=== PATIENT | male | born 1995 | race Caucasian/White ===

== ENCOUNTER → 2016-06-19 | Outpatient (CLI) | payer BC, OTHER, MEDICAID ==
[2016-06-19 18:19] LABS: MEAN CORPUSCULAR HEMOGLOBIN 29.5 pg (27.0-33.0); MEAN CORPUSCULAR HGB CONC 34.5 g/dl (32.0-36.5); MEAN CORPUSCULAR VOLUME 85.6 fl (80.0-96.0); RED CELL DISTRIBUTION WIDTH 12.3 % (11.5-14.5); WHITE BLOOD COUNT 6.8 K/mm3 (4.0-10.0)
[2016-06-19 19:14] LABS: ALBUMIN 4.4 GM/DL (3.2-5.2); ALBUMIN/GLOBULIN RATIO 1.26 (1.00-1.93); ALKALINE PHOSPHATASE 110 U/L (45-117); ALT/SGPT 21 U/L (12-78); ANION GAP 9 MEQ/L (8-16); AST/SGOT 17 U/L (15-37); BILIRUBIN,TOTAL 1.4 MG/DL (0.2-1.0); BLOOD UREA NITROGEN 11 MG/DL (7-18); CALCIUM LEVEL 8.7 MG/DL (8.5-10.1); CARBON DIOXIDE LEVEL 23 MEQ/L (21-32); CHLORIDE LEVEL 109 MEQ/L (98-107); CREATININE FOR GFR 0.84 MG/DL (0.70-1.30); FREE T4 1.51 NG/DL (0.76-1.46); GLOMERULAR FILTRATION RATE > 60.0 (>60); GLUCOSE, FASTING 88 MG/DL (70-105); POTASSIUM SERUM 4.4 MEQ/L (3.5-5.1); SODIUM LEVEL 141 MEQ/L (136-145); TOTAL PROTEIN 7.9 GM/DL (6.4-8.2)
[2016-06-19 19:15] LABS: LITHIUM LEVEL 1.18 MEQ/L (0.60-1.20)
== END ==
LOC: M WUC 08:35
PROVIDERS: ATTEND Neuromusculoskeletal Medicine & OMM
DX: F43.22 Adjustment disorder with anxiety (principal); F42.2 Mixed obsessional thoughts and acts

== ENCOUNTER → 2016-12-03 | Outpatient (CLI) | payer BC, OTHER, MEDICAID ==
[2016-12-03 14:37] LABS: BLOOD UREA NITROGEN 12 MG/DL (7-18); CHOLESTEROL LEVEL 96 MG/DL (<200); CREATININE FOR GFR 0.82 MG/DL (0.70-1.30); GLOMERULAR FILTRATION RATE > 60.0 (>60); GLUCOSE, FASTING 85 MG/DL (70-105); TRIGLYCERIDES LEVEL 77 MG/DL (<150)
[2016-12-03 15:03] LABS: LITHIUM LEVEL 1.14 MEQ/L (0.60-1.20)
== END ==
LOC: M WUC 08:54
PROVIDERS: ATTEND Psychiatry & Neurology Psychiatry
DX: Z51.81 Encounter for therapeutic drug level monitoring (principal); Z79.899 Other long term (current) drug therapy

== ENCOUNTER → 2017-06-14 | Outpatient (CLI) | payer OTHER, BC, MEDICAID ==
[2017-06-14 11:22] LABS: HEMATOCRIT 40.7 % (42.0-52.0); HEMOGLOBIN 13.3 g/dl (14.0-18.0); MEAN CORPUSCULAR HGB CONC 32.7 g/dl (32.0-36.5); MEAN CORPUSCULAR VOLUME 88.7 fl (80.0-96.0); PLATELET COUNT, AUTOMATED 246 10^3/uL (150-450); RED BLOOD COUNT 4.59 10^6/uL (4.30-6.10); RED CELL DISTRIBUTION WIDTH 12.5 % (11.5-14.5)
[2017-06-14 14:35] LABS: ALBUMIN 4.4 GM/DL (3.2-5.2); ALBUMIN/GLOBULIN RATIO 1.26 (1.00-1.93); ALKALINE PHOSPHATASE 103 U/L (45-117); ALT/SGPT 17 U/L (12-78); ANION GAP 5 MEQ/L (8-16); AST/SGOT 10 U/L (7-37); BILIRUBIN,TOTAL 1.3 MG/DL (0.2-1.0); BLOOD UREA NITROGEN 12 MG/DL (7-18); CALCIUM LEVEL 9.2 MG/DL (8.5-10.1); CARBON DIOXIDE LEVEL 27 MEQ/L (21-32); CHLORIDE LEVEL 109 MEQ/L (98-107); CREATININE FOR GFR 0.79 MG/DL (0.70-1.30); FREE T4 1.29 NG/DL (0.76-1.46); GLOMERULAR FILTRATION RATE > 60.0 (>60); GLUCOSE, FASTING 93 MG/DL (70-100); POTASSIUM SERUM 4.2 MEQ/L (3.5-5.1); SODIUM LEVEL 141 MEQ/L (136-145); TOTAL PROTEIN 7.9 GM/DL (6.4-8.2)
[2017-06-14 14:37] LABS: LITHIUM LEVEL 1.16 MEQ/L (0.60-1.20)
== END ==
LOC: M WUC 08:31
DX: F43.22 Adjustment disorder with anxiety (principal)

== ENCOUNTER → 2017-11-05 | Outpatient (CLI) | payer OTHER, BC, MEDICAID ==
[2017-11-05 17:08] LABS: HEMATOCRIT 40.4 % (42.0-52.0); HEMOGLOBIN 13.2 g/dl (13.5-17.5); MEAN CORPUSCULAR HEMOGLOBIN 29.1 pg (27.0-33.0); MEAN CORPUSCULAR HGB CONC 32.7 g/dl (32.0-36.5); MEAN CORPUSCULAR VOLUME 89.2 fl (80.0-96.0); PLATELET COUNT, AUTOMATED 233 10^3/uL (150-450); RED BLOOD COUNT 4.53 10^6/uL (4.30-6.10); RED CELL DISTRIBUTION WIDTH 12.5 % (11.5-14.5); WHITE BLOOD COUNT 10.6 10^3/uL (4.0-10.0)
[2017-11-05 17:24] LABS: ESTIMATED AVERAGE GLUCOSE 88 MG/DL (60-110); HEMOGLOBIN A1c 4.7 %
[2017-11-05 17:25] LABS: BLOOD UREA NITROGEN 18 MG/DL (7-18); CHOLESTEROL LEVEL 113 MG/DL (<200); CREATININE FOR GFR 0.93 MG/DL (0.70-1.30); GLOMERULAR FILTRATION RATE > 60.0 (>60); GLUCOSE, FASTING 77 MG/DL (70-100); HDL CHOLESTEROL 50 MG/DL (>40); NON-HDL-C 63 MG/DL; TRIGLYCERIDES LEVEL 60 MG/DL (<150)
[2017-11-05 17:30] LABS: LITHIUM LEVEL 1.11 MEQ/L (0.60-1.20)
== END ==
LOC: M WUC 08:09
DX: Z51.81 Encounter for therapeutic drug level monitoring (principal); Z79.899 Other long term (current) drug therapy
CPT/HCPCS: 82565

== ENCOUNTER → 2018-06-08 | Outpatient (REF) | payer OTHER, MEDICAID ==
[2018-06-08 16:33] LABS: BASO % 0.4 % (0.0-1.0); EOS % 0.1 % (0.0-3.0); HEMATOCRIT 43.3 % (42.0-52.0); LYMPH # 1.7 10^3/uL (1.5-6.5); LYMPH % 17.1 % (24.0-44.0); MEAN CORPUSCULAR HEMOGLOBIN 28.6 pg (27.0-33.0); MEAN CORPUSCULAR HGB CONC 32.3 g/dl (32.0-36.5); MEAN CORPUSCULAR VOLUME 88.5 fl (80.0-96.0); MONO # 0.7 10^3/uL (0.0-0.8); MONO % 6.7 % (0.0-5.0); NEUTROPHILS # 7.3 10^3/uL (1.8-7.7); NEUTROPHILS % 75.3 % (36.0-66.0); PLATELET COUNT, AUTOMATED 263 10^3/uL (150-450); RED BLOOD COUNT 4.89 10^6/uL (4.30-6.10); WHITE BLOOD COUNT 9.7 10^3/uL (4.0-10.0)
[2018-06-08 16:48] LABS: ALBUMIN 4.2 GM/DL (3.2-5.2); ALT/SGPT 19 U/L (12-78); BILIRUBIN,TOTAL 1.3 MG/DL (0.2-1.0); BLOOD UREA NITROGEN 14 MG/DL (7-18); CALCIUM LEVEL 9.2 MG/DL (8.5-10.1); CARBON DIOXIDE LEVEL 29 MEQ/L (21-32); CHLORIDE LEVEL 105 MEQ/L (98-107); CREATININE FOR GFR 0.81 MG/DL (0.70-1.30); FREE THYROXINE INDEX 3.5 % (1.4-3.8); GLOMERULAR FILTRATION RATE > 60.0 (>60); GLUCOSE, FASTING 58 MG/DL (70-100); LITHIUM LEVEL 0.84 MEQ/L (0.60-1.20); POTASSIUM SERUM 3.9 MEQ/L (3.5-5.1); SODIUM LEVEL 140 MEQ/L (136-145); T UPTAKE 34 % (33-40); THYROXINE (T4) 10.3 UG/DL (4.5-12.0)
== END ==
LOC: M SFHCPLAZ 13:41
DX: Z00.00 Encounter for general adult medical examination without abnormal findings (principal)

== ENCOUNTER → 2018-06-13 | Outpatient (CLI) | payer OTHER, MEDICAID | LOC: M WUC 08:36 | PROVIDERS: ATTEND Internal Medicine | DX: Z00.00 Encounter for general adult medical examination without abnormal findings (principal) ==

== ENCOUNTER → 2019-01-17 | Outpatient (CLI) | payer OTHER, MEDICAID ==
[2019-01-17 09:30] LABS: HEMATOCRIT 41.3 % (42.0-52.0); HEMOGLOBIN 13.4 g/dl (13.5-17.5); MEAN CORPUSCULAR HEMOGLOBIN 28.8 pg (27.0-33.0); MEAN CORPUSCULAR HGB CONC 32.4 g/dl (32.0-36.5); MEAN CORPUSCULAR VOLUME 88.8 fl (80.0-96.0); PLATELET COUNT, AUTOMATED 254 10^3/uL (150-450); RED BLOOD COUNT 4.65 10^6/uL (4.30-6.10); WHITE BLOOD COUNT 7.7 10^3/uL (4.0-10.0)
[2019-01-17 09:47] LABS: BLOOD UREA NITROGEN 16 MG/DL (7-18); CHOLESTEROL LEVEL 127 MG/DL (<200); CHOLESTEROL RISK RATIO 2.645 (<5); CREATININE FOR GFR 0.89 MG/DL (0.70-1.30); GLOMERULAR FILTRATION RATE > 60.0 (>60); GLUCOSE, FASTING 91 MG/DL (70-100); HDL CHOLESTEROL 48 MG/DL (>40); LDL CHOLESTEROL 61 MG/DL (<100); LITHIUM LEVEL 1.02 MEQ/L (0.60-1.20); NON-HDL-C 79 MG/DL; TRIGLYCERIDES LEVEL 91 MG/DL (<150)
[2019-01-17 10:20] LABS: HEMOGLOBIN A1c 4.1 %
== END ==
LOC: M WUC 08:03
PROVIDERS: ATTEND Psychiatry & Neurology Psychiatry
DX: Z79.899 Other long term (current) drug therapy (principal)

== ENCOUNTER → 2020-05-28 | Outpatient (REF) | payer MEDICAID, OTHER ==
[2020-05-28 11:21] LABS: HEMATOCRIT 43.8 % (42.0-52.0); MEAN CORPUSCULAR HEMOGLOBIN 28.4 pg (27.0-33.0); MEAN CORPUSCULAR VOLUME 88.8 fl (80.0-96.0); PLATELET COUNT, AUTOMATED 220 10^3/uL (150-450); RED BLOOD COUNT 4.93 10^6/uL (4.30-6.10); WHITE BLOOD COUNT 9.6 10^3/uL (4.0-10.0)
[2020-05-28 11:52] LABS: BLOOD UREA NITROGEN 15 MG/DL (7-18); CHOLESTEROL LEVEL 134 MG/DL (<200); CREATININE FOR GFR 0.86 MG/DL (0.70-1.30); GLOMERULAR FILTRATION RATE > 60.0 (>60); GLUCOSE, FASTING 78 MG/DL (70-100); HDL CHOLESTEROL 58 MG/DL (>40); LDL CHOLESTEROL 66 MG/DL (<100); LITHIUM LEVEL 0.81 MEQ/L (0.60-1.20); NON-HDL-C 76 MG/DL; TRIGLYCERIDES LEVEL 48 MG/DL (<150)
[2020-05-28 12:37] LABS: HEMOGLOBIN A1c 4.3 %
== END ==
LOC: M WUC 10:34 → M LAB REF 10:34
PROVIDERS: ATTEND Psychiatry & Neurology Psychiatry
DX: Z79.899 Other long term (current) drug therapy (principal)

== ENCOUNTER → 2021-01-05 | Outpatient (CLI) | payer MEDICAID, OTHER ==
[2021-01-05 10:26] LABS: HEMOGLOBIN A1c 4.5 %
[2021-01-05 10:42] LABS: ALBUMIN 4.2 GM/DL (3.2-5.2); ALT/SGPT 23 U/L (12-78); BILIRUBIN,TOTAL 1.1 MG/DL (0.2-1.0); BLOOD UREA NITROGEN 15 MG/DL (7-18); CALCIUM LEVEL 9.2 MG/DL (8.5-10.1); CARBON DIOXIDE LEVEL 24 MEQ/L (21-32); CHLORIDE LEVEL 110 MEQ/L (98-107); CHOLESTEROL LEVEL 120 MG/DL (<200); CHOLESTEROL RISK RATIO 2.105 (<5); CREATININE FOR GFR 0.77 MG/DL (0.70-1.30); GLOMERULAR FILTRATION RATE > 60.0 (>60); GLUCOSE, FASTING 92 MG/DL (70-100); HDL CHOLESTEROL 57 MG/DL (>40); LDL CHOLESTEROL 54 MG/DL (<100); LITHIUM LEVEL 0.66 MEQ/L (0.60-1.20); NON-HDL-C 63 MG/DL; SODIUM LEVEL 141 MEQ/L (136-145); TOTAL PROTEIN 7.7 GM/DL (6.4-8.2); TRIGLYCERIDES LEVEL 44 MG/DL (<150)
== END ==
LOC: M WUC 08:22
PROVIDERS: ATTEND Student in an Organized Health Care Education/Training Program
DX: Z09 Encounter for follow-up examination after completed treatment for conditions other than malignant neoplasm (principal); E80.6 Other disorders of bilirubin metabolism; F43.22 Adjustment disorder with anxiety

== ENCOUNTER → 2021-04-28 | Outpatient (CLI) | payer MEDICAID ==
[2021-04-28 13:28] LABS: HEMATOCRIT 43.4 % (42.0-52.0); HEMOGLOBIN 14.3 g/dl (13.5-17.5); MEAN CORPUSCULAR HEMOGLOBIN 28.5 pg (27.0-33.0); MEAN CORPUSCULAR HGB CONC 32.9 g/dl (32.0-36.5); MEAN CORPUSCULAR VOLUME 86.5 fl (80.0-96.0); PLATELET COUNT, AUTOMATED 234 10^3/uL (150-450); RED BLOOD COUNT 5.02 10^6/uL (4.30-6.10); WHITE BLOOD COUNT 9.1 10^3/uL (4.0-10.0)
[2021-04-28 15:05] LABS: BLOOD UREA NITROGEN 21 MG/DL (7-18); CHOLESTEROL LEVEL 105 MG/DL (<200); CHOLESTEROL RISK RATIO 2.142 (<5); CREATININE FOR GFR 0.91 MG/DL (0.70-1.30); GLOMERULAR FILTRATION RATE > 60.0 (>60); GLUCOSE, FASTING 93 MG/DL (70-100); HDL CHOLESTEROL 49 MG/DL (>40); LDL CHOLESTEROL 46 MG/DL (<100); LITHIUM LEVEL 0.84 MEQ/L (0.60-1.20); NON-HDL-C 56 MG/DL; TRIGLYCERIDES LEVEL 48 MG/DL (<150)
[2021-04-28 16:07] LABS: HEMOGLOBIN A1c 4.2 %
== END ==
LOC: M WUC 08:19
PROVIDERS: ATTEND Psychiatry & Neurology Psychiatry
DX: Z79.899 Other long term (current) drug therapy (principal)

== ENCOUNTER 2021-05-27 11:04 | Day surgery (SDC) | payer MEDICAID ==
[~2021-05-27] VITALS: Ht 162.6 cm; Wt 58.7 kg
[2021-05-27 12:16] LABS: BASO % 0.3 % (0.0-1.0); HEMATOCRIT 34.6 % (42.0-52.0); HEMOGLOBIN 11.2 g/dl (13.5-17.5); LYMPH # 1.4 10^3/uL (1.5-5.0); LYMPH % 21.3 % (24.0-44.0); MEAN CORPUSCULAR HEMOGLOBIN 27.7 pg (27.0-33.0); MEAN CORPUSCULAR HGB CONC 32.4 g/dl (32.0-36.5); MEAN CORPUSCULAR VOLUME 85.6 fl (80.0-96.0); MONO # 0.8 10^3/uL (0.0-0.8); MONO % 12.9 % (2.0-8.0); NEUTROPHILS # 4.2 10^3/uL (1.5-8.5); PLATELET COUNT, AUTOMATED 211 10^3/uL (150-450); RED BLOOD COUNT 4.04 10^6/uL (4.30-6.10); WHITE BLOOD COUNT 6.5 10^3/uL (4.0-10.0)
[2021-05-27] MEDS ORDERED: ONDANSETRON 4MG/2ML VIAL IV ONE (12:20)
[2021-05-27] MEDS ORDERED: MORPHINE 2 MG/ML 1ML VIAL (J2270) IV ONE (12:20)
[2021-05-27] MEDS ORDERED: NS 1,000 ML IV ONE (12:20)
[2021-05-27] MEDS ORDERED: LITH300T PO (12:23)
[2021-05-27] MEDS ORDERED: BUSP15TA47 PO (12:23)
[2021-05-27] MEDS ORDERED: GUAN1TAB17 PO (12:23)
[2021-05-27] MEDS ORDERED: LITH300C PO (12:23)
[2021-05-27] MEDS ORDERED: ZYPR20TA PO (12:23)
[2021-05-27 12:37] LABS: BLOOD UREA NITROGEN 11 MG/DL (7-18); CARBON DIOXIDE LEVEL 23 MEQ/L (21-32); CHLORIDE LEVEL 109 MEQ/L (98-107); CREATININE FOR GFR 0.84 MG/DL (0.70-1.30); GLOMERULAR FILTRATION RATE > 60.0 (>60); GLUCOSE, FASTING 93 MG/DL (70-100); SODIUM LEVEL 139 MEQ/L (136-145)
[2021-05-27] MEDS ORDERED: HOME MED LIST COMPLETE! XX SCH (12:45)
[2021-05-27] MEDS ORDERED: BUPIVACAINE HCL 0.25% 30ML VIAL As Ordered ONE (13:10)
[2021-05-27] MEDS ORDERED: BACITRACIN OINTMENT 30GM TUBE As Ordered ONE (13:11)
[2021-05-27] MEDS ORDERED: GENTAMICIN SULF 80MG/2ML VIAL As Ordered ONE (13:11)
[2021-05-27] MEDS ORDERED: SUCCINYLCHOLINE 100 MG/5 ML SYRINGE (J0330) As Ordered ONE (13:47)
[2021-05-27] MEDS ORDERED: dexameTHASONE 4 MG/ML 1ML VIAL (J1100 PER 1MG) As Ordered ONE (13:47)
[2021-05-27] MEDS ORDERED: propofoL 200 MG/20 ML VIAL As Ordered ONE (13:47)
[2021-05-27] MEDS ORDERED: MIDAZOLAM INJ 2MG/2ML VIAL (J2250 PER 1MG) As Ordered ONE (13:47)
[2021-05-27] MEDS ORDERED: METOCLOPRAMIDE INJ 10MG/2ML VIAL (J2765 PER 1) As Ordered ONE (13:47)
[2021-05-27] MEDS ORDERED: ROCURONIUM BROMIDE 50 MG/5 ML VIAL As Ordered ONE (13:47)
[2021-05-27] MEDS ORDERED: KETOROLAC 60MG 2ML VIAL As Ordered ONE (13:47)
[2021-05-27] MEDS ORDERED: LIDOCAINE 2% 100MG/5ML SDV (FOR ANES.) As Ordered ONE (13:47)
[2021-05-27] MEDS ORDERED: ONDANSETRON 4MG/2ML VIAL As Ordered ONE (13:47)
[2021-05-27] MEDS ORDERED: fentaNYL 100 MCG/2 ML INJECTION As Ordered ONE ×2 (13:47→14:00)
[2021-05-27] MEDS ORDERED: SUGAMMADEX SODIUM 500 MG/5 ML VIAL (BRIDION) As Ordered ONE (13:47)
[2021-05-27] MEDS ORDERED: ACETAMINOPHEN 1000MG 100ML IV BTL (OFIRMEV) (J0131 PER 10MG) As Ordered ONE (13:52)
[2021-05-27] MEDS ORDERED: ceFAZolin 2 GM/D5W 50 ML IV BAG (J0690 PER 500MG) As Ordered ONE (13:54)
[2021-05-27] MEDS ORDERED: oxyCODONE 5MG TAB PO PRN (15:15)
[2021-05-27] MEDS ORDERED: ONDANSETRON 4MG/2ML VIAL IV PRN (15:15)
[2021-05-27] MEDS ORDERED: fentaNYL 100 MCG/2 ML INJECTION IV PRN (15:15)
[2021-05-27] MEDS ORDERED: LR 1,000 ML IV SCH (15:15)
[2021-05-27 15:35] VITALS: BP 118/87
== END 2021-05-27 16:00 | disposition home or self-care (01) ==
LOC: M ED 11:04 → M SDC 11:05
PROVIDERS: ATTEND Specialist
DX: N44.00 Torsion of testis, unspecified (principal); F84.0 Autistic disorder; F90.9 Attention-deficit hyperactivity disorder, unspecified type; F79 Unspecified intellectual disabilities; U07.1 COVID-19; Z79.899 Other long term (current) drug therapy; F42.9 Obsessive-compulsive disorder, unspecified
CPT/HCPCS: 36415; 54520; 54620; 76870; 80048; 85025; 88305; 93976; 96374; 96375; 99284; J0131; J0330; J0690; J1100; J1580; J1885; J2250; J2270; J2405; J2765; J3010

== ENCOUNTER 2021-06-01 08:48 | Emergency (ER) | payer MEDICAID ==
[~2021-06-01] VITALS: Ht 162.6 cm; Wt 60.2 kg
[~2021-06-01 08:48] MED LIST: BUSP15TA47 PO; GUAN1TAB17 PO; LITH300C PO; LITH300T PO; ZYPR20TA PO
[2021-06-01 11:56] VITALS: BP 120/65
[2021-06-01] MEDS ORDERED: CEPH500C PO (11:56)
[2021-06-01] MEDS ORDERED: CEPHALEXIN 500 MG CAP PO ONE (12:00)
== END 2021-06-01 12:10 | disposition home or self-care (01) ==
LOC: M ED 08:48
DX: T81.40XA Infection following a procedure, unspecified, initial encounter (principal); N44.00 Torsion of testis, unspecified; Z88.4 Allergy status to anesthetic agent

== ENCOUNTER → 2021-07-08 | Outpatient (REF) | payer MEDICAID ==
[~2021-07-08] MED LIST changes: +CEPH500C PO
== END ==
LOC: M SFHCPLAZ 13:54
PROVIDERS: ATTEND Family Medicine
DX: Z53.20 Procedure and treatment not carried out because of patient's decision for unspecified reasons (principal)

== ENCOUNTER → 2021-07-20 | Outpatient (CLI) | payer MEDICAID ==
[2021-07-20 10:49] LABS: ALBUMIN 4.4 GM/DL (3.2-5.2); ALT/SGPT 18 U/L (12-78); BILIRUBIN,TOTAL 1.8 MG/DL (0.2-1.0); BLOOD UREA NITROGEN 11 MG/DL (7-18); CALCIUM LEVEL 9.3 MG/DL (8.5-10.1); CARBON DIOXIDE LEVEL 28 MEQ/L (21-32); CHLORIDE LEVEL 108 MEQ/L (98-107); CHOLESTEROL LEVEL 101 MG/DL (<200); GLOMERULAR FILTRATION RATE > 60.0 (>60); GLUCOSE, FASTING 86 MG/DL (70-100); HDL CHOLESTEROL 50 MG/DL (>40); LDL CHOLESTEROL 40 MG/DL (<100); NON-HDL-C 51 MG/DL; POTASSIUM SERUM 4.2 MEQ/L (3.5-5.1); SODIUM LEVEL 140 MEQ/L (136-145); TOTAL PROTEIN 7.6 GM/DL (6.4-8.2); TRIGLYCERIDES LEVEL 54 MG/DL (<150)
== END ==
LOC: M WUC 08:15
PROVIDERS: ATTEND Student in an Organized Health Care Education/Training Program
DX: Z00.00 Encounter for general adult medical examination without abnormal findings (principal); E80.6 Other disorders of bilirubin metabolism

== ENCOUNTER → 2021-12-30 | Outpatient (CLI) | payer MEDICAID ==
[2021-12-30 11:14] LABS: ALBUMIN 4.2 GM/DL (3.2-5.2); ALT/SGPT 16 U/L (12-78); BILIRUBIN,TOTAL 2.5 MG/DL (0.2-1.0); BLOOD UREA NITROGEN 13 MG/DL (7-18); CALCIUM LEVEL 9.4 MG/DL (8.5-10.1); CARBON DIOXIDE LEVEL 25 MEQ/L (21-32); CHLORIDE LEVEL 110 MEQ/L (98-107); CREATININE FOR GFR 0.87 MG/DL (0.70-1.30); GLOMERULAR FILTRATION RATE > 60.0 (>60); GLUCOSE, FASTING 84 MG/DL (70-100); SODIUM LEVEL 138 MEQ/L (136-145); TOTAL PROTEIN 7.6 GM/DL (6.4-8.2)
== END ==
LOC: M WUC 08:39
PROVIDERS: ATTEND Student in an Organized Health Care Education/Training Program
DX: E80.6 Other disorders of bilirubin metabolism (principal)

== ENCOUNTER → 2022-03-02 | Outpatient (CLI) | payer MEDICAID ==
[2022-03-02 15:21] LABS: APPEARANCE, URINE MANUAL CLEAR (CLEAR); COLOR, URINE MANUAL LT YELLOW (YELLOW)
[2022-03-02 15:23] LABS: BILIRUBIN, URINE MANUAL NEGATIVE (NEGATIVE); BLOOD URINE MANUAL NEGATIVE (NEGATIVE); GLUCOSE, URINE (UA) MANUAL NEGATIVE (NEGATIVE); KETONE, URINE MANUAL NEGATIVE (NEGATIVE); LEUKOCYTE ESTERASE, URINE MAN NEGATIVE (NEGATIVE); NITRITE, URINE MANUAL NEGATIVE (NEGATIVE); PROTEIN, URINE MANUAL NEGATIVE (NEGATIVE); UROBILINOGEN, URINE MANUAL NORMAL (NORMAL)
== END ==
LOC: M PLALAB 13:31
PROVIDERS: ATTEND Student in an Organized Health Care Education/Training Program
DX: R39.81 Functional urinary incontinence (principal)

== ENCOUNTER → 2022-03-31 | Outpatient (REF) | payer MEDICAID ==
[2022-03-31 15:38] LABS: APPEARANCE, URINE MANUAL CLEAR (CLEAR); COLOR, URINE MANUAL YELLOW (YELLOW)
[2022-03-31 15:41] LABS: BILIRUBIN, URINE MANUAL NEGATIVE (NEGATIVE); GLUCOSE, URINE (UA) MANUAL NEGATIVE (NEGATIVE); KETONE, URINE MANUAL NEGATIVE (NEGATIVE); PROTEIN, URINE MANUAL NEGATIVE (NEGATIVE); UROBILINOGEN, URINE MANUAL NORMAL (NORMAL)
[2022-03-31 15:42] LABS: BLOOD URINE MANUAL NEGATIVE (NEGATIVE); LEUKOCYTE ESTERASE, URINE MAN NEGATIVE (NEGATIVE); NITRITE, URINE MANUAL NEGATIVE (NEGATIVE)
== END ==
LOC: M SFHCPLAZ 15:06
PROVIDERS: ATTEND Student in an Organized Health Care Education/Training Program
DX: R39.81 Functional urinary incontinence (principal)

== ENCOUNTER → 2022-04-28 | Outpatient (CLI) | payer MEDICAID ==
[~2022-04-28] MED LIST changes: +ISOVUE-370 76% 100ML VIAL As Ordered ONE
== END ==
LOC: M RAD 10:38
PROVIDERS: ATTEND Urology
DX: N32.89 Other specified disorders of bladder (principal)

== ENCOUNTER → 2022-06-10 | Outpatient (CLI) | payer MEDICAID ==
[~2022-06-10] MED LIST changes: -ISOVUE-370 76% 100ML VIAL As Ordered ONE
[2022-06-10 12:23] LABS: HEMATOCRIT 41.5 % (42.0-52.0); HEMOGLOBIN 13.2 g/dl (13.5-17.5); MEAN CORPUSCULAR HEMOGLOBIN 28.5 pg (27.0-33.0); MEAN CORPUSCULAR HGB CONC 31.8 g/dl (32.0-36.5); MEAN CORPUSCULAR VOLUME 89.6 fl (80.0-96.0); PLATELET COUNT, AUTOMATED 205 10^3/uL (150-450); RED BLOOD COUNT 4.63 10^6/uL (4.30-6.10); WHITE BLOOD COUNT 9.5 10^3/uL (4.0-10.0)
[2022-06-10 12:24] LABS: BLOOD UREA NITROGEN 13 MG/DL (9-23); CHOLESTEROL LEVEL 107 MG/DL (<200); CHOLESTEROL RISK RATIO 2.06 (<5); CREATININE FOR GFR 0.83 MG/DL (0.70-1.30); GLOMERULAR FILTRATION RATE > 60.0 (>60); GLUCOSE, FASTING 91 MG/DL (60-100); HDL CHOLESTEROL 51.7 MG/DL (>40); LDL CHOLESTEROL 48.9 MG/DL (<100); NON-HDL-C 55 MG/DL; TRIGLYCERIDES LEVEL 32 MG/DL (<150)
[2022-06-10 12:26] LABS: LITHIUM LEVEL 0.87 MMOL/L (0.60-1.20)
[2022-06-10 12:42] LABS: HEMOGLOBIN A1c 4.4 % (4.0-6.0)
== END ==
LOC: M WUC 08:59
PROVIDERS: ATTEND Psychiatry & Neurology Psychiatry
DX: Z79.899 Other long term (current) drug therapy (principal)

== ENCOUNTER 2022-07-16 12:54 | Emergency (ER) | payer MEDICAID ==
[2022-07-16 14:18] VITALS: BP 142/70
== END 2022-07-16 14:52 | disposition home or self-care (01) ==
LOC: M ED 12:54
DX: R45.1 Restlessness and agitation (principal); F42.9 Obsessive-compulsive disorder, unspecified; F90.9 Attention-deficit hyperactivity disorder, unspecified type; Z88.8 Allergy status to other drugs, medicaments and biological substances; Z79.899 Other long term (current) drug therapy

== ENCOUNTER → 2022-11-23 | Outpatient (REF) | payer MEDICAID ==
[2022-11-23 10:28] LABS: ALBUMIN 4.4 G/DL (3.2-5.2); ALKALINE PHOSPHATASE 110 U/L (46-116); ALT/SGPT 15 U/L (7.0-40); AST/SGOT < 8 U/L (<34); BILIRUBIN,TOTAL 2.4 MG/DL (0.3-1.2); BLOOD UREA NITROGEN 11 MG/DL (9-23); CALCIUM LEVEL 9.6 MG/DL (8.5-10.1); CARBON DIOXIDE LEVEL 28 MMOL/L (20-31); CHLORIDE LEVEL 106 MMOL/L (98-107); CREATININE FOR GFR 0.79 MG/DL (0.70-1.30); GLOMERULAR FILTRATION RATE > 60.0 (>60); GLUCOSE, FASTING 82 MG/DL (60-100); POTASSIUM SERUM 4.2 MMOL/L (3.5-5.1); SODIUM LEVEL 142 MMOL/L (136-145); TOTAL PROTEIN 7.5 G/DL (5.7-8.2)
== END ==
LOC: M LABWUC 09:32
PROVIDERS: ATTEND Student in an Organized Health Care Education/Training Program
DX: Z00.00 Encounter for general adult medical examination without abnormal findings (principal)

== ENCOUNTER → 2022-12-14 | Outpatient (CLI) | payer MEDICAID ==
[2022-12-14 11:00] LABS: VALPROIC ACID (DEPAKOTE) 44.2 UG/ML (50.0-100.0)
[2022-12-14 11:03] LABS: ALBUMIN 3.9 G/DL (3.2-5.2); ALKALINE PHOSPHATASE 105 U/L (46-116); ALT/SGPT 16 U/L (7.0-40); AST/SGOT < 8 U/L (<34); BILIRUBIN,DIRECT 0.8 MG/DL (<0.4); BILIRUBIN,TOTAL 1.9 MG/DL (0.3-1.2)
== END ==
LOC: M WUC 08:32
PROVIDERS: ATTEND Psychiatry & Neurology Psychiatry
DX: F70 Mild intellectual disabilities (principal); F82 Specific developmental disorder of motor function

== ENCOUNTER → 2023-08-03 | Outpatient (REF) | payer MEDICAID | LOC: M SFHCPLAZ 09:28 | PROVIDERS: ATTEND Student in an Organized Health Care Education/Training Program | DX: Z00.00 Encounter for general adult medical examination without abnormal findings (principal) ==

== ENCOUNTER → 2023-09-02 | Outpatient (CLI) | payer MEDICAID ==
[2023-09-02 09:58] LABS: BASO % 0.8 % (0.0-1.0); EOS # 0.1 10^3/uL (0.0-0.5); HEMOGLOBIN 14.6 g/dl (13.5-17.5); LYMPH # 1.8 10^3/uL (1.5-5.0); MEAN CORPUSCULAR HEMOGLOBIN 29.4 pg (27.0-33.0); MEAN CORPUSCULAR VOLUME 86.7 fl (80.0-96.0); MONO # 0.4 10^3/uL (0.0-0.8); MONO % 9.5 % (2.0-8.0); NEUTROPHILS # 1.7 10^3/uL (1.5-8.5); NEUTROPHILS % 43.4 % (36.0-66.0); PLATELET COUNT, AUTOMATED 156 10^3/uL (150-450); RED BLOOD COUNT 4.96 10^6/uL (4.30-6.10)
[2023-09-02 10:23] LABS: CHOLESTEROL RISK RATIO 2.14 (<5); HDL CHOLESTEROL 49.5 MG/DL (>40); LDL CHOLESTEROL 46.9 MG/DL (<100); NON-HDL-C 56.5 MG/DL
[2023-09-02 11:02] LABS: HEPATITIS C VIRUS ABY INDEX 0.04 INDEX (<0.8)
== END ==
LOC: M LAB 08:45
PROVIDERS: ATTEND Student in an Organized Health Care Education/Training Program
DX: Z00.00 Encounter for general adult medical examination without abnormal findings (principal)

== ENCOUNTER → 2024-01-19 | Outpatient (REF) | payer MEDICAID ==
[2024-01-19 12:56] LABS: APPEARANCE, URINE CLEAR (CLEAR); BACTERIA, URINE AUTO NEGATIVE (NEGATIVE); BILIRUBIN, URINE AUTO NEGATIVE (NEGATIVE); BLOOD, URINE BLOOD NEGATIVE (NEGATIVE); COLOR, URINE YELLOW (YELLOW); GLUCOSE, URINE (UA) AUTO NEGATIVE (NEGATIVE); KETONE, URINE AUTO NEGATIVE (NEGATIVE); LEUKOCYTE ESTERASE, URINE AUTO NEGATIVE (NEGATIVE); NITRITE, URINE AUTO NEGATIVE (NEGATIVE); PROTEIN, URINE AUTO NEGATIVE (NEGATIVE); RBC, URINE AUTO 0 /HPF (0-3); SPECIFIC GRAVITY URINE AUTO 1.003 (1.002-1.035); SQUAMOUS EPITHELIAL CELL UR AU 0 /HPF (0-6); UROBILINOGEN, URINE AUTO 0.2 mg/dL (0.0-2.0); WBC, URINE AUTO 0 /HPF (0-3)
== END ==
LOC: M LAB REF 12:15
PROVIDERS: ATTEND Emergency Medicine
DX: R30.0 Dysuria (principal); Z60.8 Other problems related to social environment

== ENCOUNTER → 2024-05-16 | Outpatient (CLI) | payer MEDICAID ==
[2024-05-16 10:47] LABS: HEMATOCRIT 45.3 % (42.0-52.0); HEMOGLOBIN 15.4 g/dl (13.5-17.5); MEAN CORPUSCULAR VOLUME 88.3 fl (80.0-96.0); PLATELET COUNT, AUTOMATED 185 10^3/uL (150-450); RED BLOOD COUNT 5.13 10^6/uL (4.30-6.10); WHITE BLOOD COUNT 7.4 10^3/uL (4.0-10.0)
[2024-05-16 11:17] LABS: VALPROIC ACID (DEPAKOTE) 42.7 UG/ML (50.0-100.0)
[2024-05-16 11:19] LABS: ALBUMIN 3.8 G/DL (3.2-5.2); BILIRUBIN,DIRECT 0.2 MG/DL (<0.4); BILIRUBIN,TOTAL 0.6 MG/DL (0.3-1.2); TOTAL PROTEIN 7.5 G/DL (5.7-8.2)
== END ==
LOC: M WUC 08:24
PROVIDERS: ATTEND Psychiatry & Neurology Psychiatry
DX: F70 Mild intellectual disabilities (principal); F82 Specific developmental disorder of motor function; F84.0 Autistic disorder; F90.0 Attention-deficit hyperactivity disorder, predominantly inattentive type

== ENCOUNTER → 2024-06-18 | Outpatient (REF) | payer MEDICAID ==
[2024-06-18 15:34] LABS: APPEARANCE, URINE CLEAR (CLEAR); BACTERIA, URINE AUTO NEGATIVE (NEGATIVE); BILIRUBIN, URINE AUTO NEGATIVE (NEGATIVE); BLOOD, URINE BLOOD NEGATIVE (NEGATIVE); COLOR, URINE STRAW (YELLOW); GLUCOSE, URINE (UA) AUTO NEGATIVE (NEGATIVE); KETONE, URINE AUTO NEGATIVE (NEGATIVE); LEUKOCYTE ESTERASE, URINE AUTO 1+ (NEGATIVE); NITRITE, URINE AUTO NEGATIVE (NEGATIVE); PROTEIN, URINE AUTO NEGATIVE (NEGATIVE); RBC, URINE AUTO 0 /HPF (0-3); SPECIFIC GRAVITY URINE AUTO 1.004 (1.002-1.035); SQUAMOUS EPITHELIAL CELL UR AU 0 /HPF (0-6); UROBILINOGEN, URINE AUTO 0.2 mg/dL (0.0-2.0); WBC, URINE AUTO 15 /HPF (0-3)
== END ==
LOC: M SFHCPLAZ 14:57
PROVIDERS: ATTEND Student in an Organized Health Care Education/Training Program
DX: R35.89 Other polyuria (principal)

== ENCOUNTER → 2025-01-29 | Outpatient (REF) | payer MEDICAID ==
[~2025-01-29] MED LIST changes: +OLAN20TA74 PO; -ZYPR20TA PO
== END ==
LOC: M SFHCPLAZ 09:42
PROVIDERS: ATTEND Family Medicine
DX: E80.4 Gilbert syndrome (principal); F42.9 Obsessive-compulsive disorder, unspecified; Z13.6 Encounter for screening for cardiovascular disorders

== ENCOUNTER → 2025-01-29 | Outpatient (CLI) | payer MEDICAID ==
[2025-01-29 14:09] LABS: PLATELET COUNT, AUTOMATED 226 10^3/uL (150-450)
[2025-01-29 14:10] LABS: ALT/SGPT 23 U/L (7.0-40); AST/SGOT 15 U/L (<34); CALCIUM LEVEL 9.2 MG/DL (8.5-10.1); CARBON DIOXIDE LEVEL 23 MMOL/L (20-31); CHLORIDE LEVEL 110 MMOL/L (98-107); CHOLESTEROL LEVEL 207 MG/DL (<200); CHOLESTEROL RISK RATIO 4.12 (<5); CREATININE FOR GFR 0.96 MG/DL (0.70-1.30); GLOMERULAR FILTRATION RATE > 90.0 (>60); LDL CHOLESTEROL 111.2 MG/DL (<100); NON-HDL-C 156.8 MG/DL; POTASSIUM SERUM 4.1 MMOL/L (3.5-5.1); SODIUM LEVEL 144 MMOL/L (136-145); TRIGLYCERIDES LEVEL 228 MG/DL (<150)
== END ==
LOC: M PLALAB 09:52
PROVIDERS: ATTEND Family Medicine
DX: E80.4 Gilbert syndrome (principal); F42.9 Obsessive-compulsive disorder, unspecified; Z13.6 Encounter for screening for cardiovascular disorders

== ENCOUNTER → 2025-02-25 | Outpatient (CLI) | payer MEDICAID ==
[~2025-02-25] MED LIST changes: +ISOVUE-370 76% 100 ML VIAL ONE
== END ==
LOC: M PLAIMG 09:05
PROVIDERS: ATTEND Family Medicine
DX: R91.1 Solitary pulmonary nodule (principal)